=== PATIENT | female | born 1955 | race Caucasian/White ===

== ENCOUNTER 2024-10-11 14:55 | Emergency (ER) | payer OTHER, SELFPAY ==
--- NOTE | 2024-10-11 15:15 | ED.GENMED ---
ED Provider Triage
-
Patient seen by provider in Triage?: Seen in Triage
Attestation: A medical screening examination has been initiated by a qualified medical provider. Based on the assessment performed at this time, it has been determined that an emergent medical condition may exist and the patient has been informed
that further medical evaluation and possible additional diagnostic testing may be needed.
HPI: 68-year-old female presenting to the ER at the request of primary care provider for rule out DVT to the right lower extremity. Patient has had waxing and waning edema to the right lower extremity, worse over the last few days. Denies any
weakness, numbness, paresthesias, color changes, traumatic injuries or any other concerns. Noted history for arthritis. Ultrasound to rule out DVT ordered. Patient otherwise stable and ambulatory.
GENERAL: Alert , in no apparent distress
EYE: No visual abnormalities.
NECK: Trachea midline
ENT: No visible abnormalities.
LUNGS: No acute respiratory distress
NEUROLOGICAL: Alert and oriented
SKIN: Skin intact. No visible changes.
MUSCULOSKELETAL: Moving extremities normally
PSYCH: Normal and appropriate interaction.
This is a medical evaluation conducted in person to initiate diagnostic evaluation and provide initial therapeutics. Please see further documentation by the treating clinician.
History of Present Illness
General
Chief Complaint: DVT/Possible Blood Clot
Source: patient
Time Seen by Provider: 10/11/24 16:43
History of Present Illness
History of Present Illness:
68-year-old female presenting to the emergency department for evaluation at the request of her primary care provider to ensure no DVT to her right lower extremity after patient noticed some edema over the last few days. She notes that she was
started on minoxidil for another issue 3 days prior which is when she noticed the swelling and thought this might be related. She does note a history of arthritis to her right lower extremity which is causing mild swelling before. Denies any other
risk factors including recent travel, known clotting disorders, smoking or any other concerns presently. She also denies any focal weakness or numbness, color changes, paresthesias, motor deficits or any other concerns.
Past History
Past History
ED Past Medical History: Hypercholesterolemia
ED Past Surgical History: Orthopedic
Social History
Tobacco: Non-smoker
Alcohol: None
Drug: None
Personal:
Living: with family
Review of Systems
Review of Systems
All Other Systems: ROS reviewed and negative except as documented in HPI and ROS
Phy Exam
Physical Exam
Physical Exam:
GENERAL: Alert , in no apparent distress
EYE: conjunctiva clear
Head: Normocephalic atraumatic
NECK: Supple,
ENT: mmm.
LUNGS: no acute respiratory distress
NEUROLOGICAL: Alert and oriented
SKIN: Warm and dry, skin intact.
MUSCULOSKELETAL: Mild nonpitting edema to the right lower extremity to mid tibia. No tenderness or overlying erythema. Extremities otherwise warm and well-perfused.
PSYCH: Normal and appropriate interaction.
Scores
Heart Failure Risk
Heart Failure Risk Score: Not Applicable
Heart Score for Chest Pain Patients
STEMI patient?: Not applicable
Withdrawal Assessment of Alcohol
Withdrawal Assessment Completed?: Not applicable
Course
Orders/Labs/Results
Orders:
Orders
10/11/24 15:15
US Periph Venous LOWER Ext RT Urgent
Comment:
Reason For Exam: edema
Vital Signs
Initial and Last Documented VS:
Initial Vital Signs
Temp Pulse Resp Pulse Ox
98.2 F 84 18 97
10/11/24 15:16 10/11/24 15:16 10/11/24 15:16 10/11/24 15:16
Last Documented Vital Signs
Temp Pulse Resp BP Pulse Ox
98.2 F 79 18 171/109 99
10/11/24 15:16 10/11/24 16:48 10/11/24 16:48 10/11/24 16:48 10/11/24 16:48
MDM/Problems Addressed
Differential Diagnosis Includes:
DVT, peripheral vascular disease, medication side effect, no signs or symptoms to suggest peripheral arterial disease or arterial occlusion
MDM/Problems Addressed:
68-year-old female presenting to the ER for evaluation and route of DVT to the right lower extremity. 3 days of edema. Ultrasound ordered from triage and is ultimately negative for DVT. Patient advised on icing and elevating as well as
compression socks. She is not having any pain. She already has an appointment scheduled to follow-up with her primary care provider. Patient had elevated blood pressure while in triage chair and notes no known history of this. Advised low-sodium
diet as well as close follow-up with her primary care provider to recheck this. Patient aware of return precautions to the ER.
*Radiology
Radiology exam reviewed: radiology read reviewed
*Pulse Oximetry
Patient hypoxic: no
*Critical Care Note
Total Time (30-74mins, 75-104mins- exclusive of procedures): Not Applicable
ED Attending Note
-
Portions of this chart may have been created with voice recognition software.� Occasional wrong word or��sound alike� substitutions may have occurred due to the inherent limitations of voice recognition software.
Discharge Plan
Departure
Patient Disposition: Home (Routine Discharge)
Date of Disposition: 10/11/24
Time of Disposition: 16:47
Patient with high blood pressure during this ER visit?: Yes
Discharge Problem:
Edema of right lower extremity
Instructions: Swelling
Interventions
Interventions:
*Risk Screen - Suicide Last Done: 10/11/24 15:16
*Nursing Disposition Last Done: 10/11/24 16:48
Discharge Date and Time
Print Language: IVORIAN
[2024-10-11 16:48] VITALS: BP 171/109
== END 2024-10-11 16:57 | disposition home or self-care (01) ==
LOC: EMR 14:55
PROVIDERS: EMERGENCY PHYSICIAN Emergency Medicine; FAMILY PHYSICIAN Family Medicine
DX: R60.0 Localized edema (principal); R03.0 Elevated blood-pressure reading, without diagnosis of hypertension
CPT/HCPCS: 99284; 93971